=== PATIENT | male | born 1975 | race Caucasian/White ===

== ENCOUNTER 2022-05-11 08:47 | Inpatient (IN) | payer SELFPAY ==
[2022-05-11] VITALS (22 sets, daily range): BP systolic 169–217; BP diastolic 112–173; PULSE 90–113; RESP 14–18; TEMP 36.6–37.1; O2SAT 94–99; BMI 35.9; BMI 34.9
--- NOTE | 2022-05-11 08:52 | NURSING ---
NO OLD EKGS
--- NOTE | 2022-05-11 08:55 | NURSING ---
STROKE ALERT CALLED [phone]
--- NOTE | 2022-05-11 08:56 | CT_ITS ---
STUDY: CTA HEAD AND NECK WITH CONTRAST REASON FOR EXAM: Male, 46 years old. Neuro deficit, acute, stroke suspected RADIATION DOSAGE (If Supplied By Facility): CTDIvol = ( 31.21 ) mGy, DLP = ( 849.16 ) mGycm TECHNIQUE: CT angiography was performed with a multi-detector CT scanner. Data acquisition was obtained from the skull base through the vertex following intravenous administration of IV 100mL [id number]-[id number]. MIP images were reconstructed from the axial data set. Post-processing of the angiographic images was performed, with multiplanar reformation and 3D reconstruction. Individualized dose optimization techniques were used for this CT. COMPARISON: No relevant priors. FINDINGS: Normal bilateral petrous carotid arteries. Normal right cavernous carotid artery with a normal supraclinoid bifurcation. Normal left cavernous carotid artery with a normal supraclinoid bifurcation. Normal right A1 segments of the anterior cerebral artery. Normal left A1 segments of the anterior cerebral artery. Normal intact anterior communicating artery (ACOM). Normal bilateral A2 segments of the anterior cerebral arteries. Normal right M1 and M2 segments of the middle cerebral arteries, with a normal M1 bifurcation. Normal left M1 and M2 segments of the middle cerebral arteries, with a normal M1 bifurcation. Normal right posterior communicating artery (PCOM). Normal left posterior communicating artery (PCOM). Normal bilateral vertebral arteries. Normal basilar artery with a normal basilar bifurcation. The visualized bilateral superior cerebellar (SCA) arteries are normal. Normal bilateral P1, P2 and visualized P3 segments of the posterior cerebral arteries. There is no demonstrated aneurysm of the saxman of Hu. There is no demonstrated abnormality of the visualized brain. AORTIC ARCH: Normal visualized aortic arch. Normal origins of the brachiocephalic, left common carotid, and left subclavian arteries. RIGHT CAROTID ARTERIES: Normal right common carotid artery (CCA). Normal right common carotid bulb. Normal origin of the right internal carotid (ICA) artery without a hemodynamically significant stenosis. Normal visualized cervical portion of the right internal carotid artery. Normal origin of the right external carotid artery (ECA). LEFT CAROTID ARTERIES: Normal left common carotid artery (CCA). Normal left common carotid bulb. Normal origin of the left internal carotid (ICA) artery without a hemodynamically significant stenosis. Normal visualized cervical portion of the left internal carotid artery. Normal origin of the left external carotid artery (ECA). VERTEBRAL ARTERIES: There is enhancement within the bilateral vertebral arteries with a small right vertebral artery, and a dominant left vertebral artery. CT/STROKE CTA Head AND Neck W/Con IMPRESSION: Normal CTA Head and neck with contrast. N.B. : The above Results were Read Back by Everton Trejo MD to Mary Yao and understanding confirmed on 05/11/2022 09:31:12 (ET). Electronically Signed: Everton Trejo MD at 9:32 EDT ,
--- NOTE | 2022-05-11 08:56 | CT_ITS ---
STUDY: CT HEAD STROKE PROTOCOL W/O CONTRAST INJECTION REASON FOR EXAM: Male, 46 years old. Neuro deficit, acute, stroke suspected RADIATION DOSAGE (If Supplied By Facility): CTDIvol = ( 44.99 ) mGy, DLP = ( 812.98 ) mGycm TECHNIQUE: Transaxial CT imaging of the brain was performed without administration of intravenous contrast material. Individualized dose optimization techniques were used for this CT. COMPARISON: No relevant priors. FINDINGS: Normal soft tissue structures. Normal calvarium. Normal size ventricles and extra-axial spaces for the patient''s age. Normal white matter tracts of the cerebral hemispheres. There is a 1.2 cm lacunar infarct in the left thalamus. Normal brainstem. Normal cerebellum. There is no intracranial hemorrhage. There are no findings of an acute ischemic infarction. Mucosal polyps or retention cysts at the base of both maxillary sinuses worse on the right side. ASPECT score: 9 CT/STROKE Brain/Head without Cont IMPRESSION: Findings suggestive of a 1.2 cm lacunar infarct in the left thalamus. N.B. : The above Results were Read Back by Everton Trejo MD to Mary Yao and understanding confirmed on 05/11/2022 09:08:49 (ET). Electronically Signed: Everton Trejo MD at 9:11 EDT ,
--- NOTE | 2022-05-11 08:56 | EKG12_ITS ---
Test Reason : STROKE Blood Pressure : / mmHG Vent. Rate : 111 BPM Atrial Rate : 111 BPM P-R Int : 180 ms QRS Dur : 092 ms QT Int : 348 ms P-R-T Axes : 000 166 124 degrees QTc Int : 473 ms Suspect arm lead reversal, interpretation assumes no reversal Sinus tachycardia Lateral infarct , age undetermined Recommend Repeat ECG Abnormal ECG Confirmed by WILLIAM JEAN, BRITTANY ([id number]), mapping editor ZAINAB STAHL ([id number]) on 05/12/2022 10:45:05 AM Referred By: JACQUE Confirmed By:BRITTANY THOMAS MD
[2022-05-11 09:09] LABS: Absolute Lymphocyte Count 2.14 X10^3/uL (0.83-4.51); Absolute Neutrophil Count 8.8 X10^3/uL (2.0-7.7); Basophil# 0.07 X10^3/uL; Basophil% 0.6 % (0-1); Eosinophil# 0.07 X10^3/uL; Eosinophils% 0.6 % (0-5); Hematocrit 52.2 % (40-54); Hemoglobin 17.9 g/dL (13.0-16.5); Lymphocyte # 2.14 X10^3/ul (0.83-4.51); Lymphocyte % 18.1 % (19-41); Mean Corp Hgb Conc 34.3 g/dL (32-36); Mean Corpuscular Hgb 31.9 pg (27.0-32.0); Mean Platelet Vol. 10.6 fl (6.2-12.0); Monocyte# 0.72 X10^3/uL; Monocyte% 6.1 % (0-10); NRBC Flagged by Analyzer 0 % (0-5); Neutrophil # 8.76 X10^3/uL (2.7-7.7); Neutrophil % 74.1 % (47-70); Platelet Count 363 K/mm3 (150-450); RBC Distribution Width CV 12.8 % (11.6-14.6); Red Blood Count 5.61 M/mm3 (4.6-6.2); White Blood Count 11.8 K/mm3 (4.4-11.0)
--- NOTE | 2022-05-11 09:09 | ED.RN ---
Dr. Vignesh Vizcarra from [facility] on telestroke
--- NOTE | 2022-05-11 09:17 | NURSING ---
FACESHEET FAXED TO [facility]
--- NOTE | 2022-05-11 09:20 | RAD_ITS ---
STUDY: X-RAY CHEST REASON FOR EXAM: Male, 46 years old. Neuro deficit, acute, stroke suspected TECHNIQUE: Single AP portable view of the chest. COMPARISON: None. FINDINGS: EKG electrodes are seen. The lungs are clear and expanded. There is no demonstrated pleural abnormality. Normal size heart. Normal mediastinum and antonella. Normal visualized pulmonary arteries. Normal visualized aortic arch and descending thoracic aorta. Normal visualized thoracic spine. Normal visualized ribs, clavicles, and shoulders. There is no demonstrated abnormality of the visualized soft tissue structures of the upper abdomen. RAD/Chest 1 View IMPRESSION: Normal x-ray examination of the chest. Electronically Signed: Everton Trejo MD at 9:35 EDT ,
[2022-05-11] MEDS: Labetalol (Prefilled) 20 MG/4 ML IV ×5 (09:23→20:42)
[2022-05-11 09:25] LABS: Bedside Glucose 177 mg/dL (74-106)
[2022-05-11 09:28] LABS: Anion Gap 4 (5-15); BUN 9 mg/dL (7-18); BUN/Creat Ratio 7.6 RATIO (10-20); Calcium,Total 9.2 mg/dL (8.5-10.1); Chloride 101 mmol/L (98-107); Creatinine, Serum 1.18 mg/dL (0.70-1.30); EST Glomerular Filtration Rate 71 mL/min (>60); Est Glom Filt Rate - Afr Amer 86 mL/min (>60); Estimated Creatinine Clearance 85.08 ml/min; Glucose 186 mg/dL (74-106); Sodium Level 132 mmol/L (136-145); Troponin-I HS 22 pg/mL (3.0-78.0)
[2022-05-11 09:41] LABS: Prothrombin Time (Protime)PT. 12.8 SECONDS (11.7-14.9)
[2022-05-11 09:42] LABS: Partial Thromboplast Time 28.1 Seconds (24.1-36.2)
--- NOTE | 2022-05-11 10:07 | ED.VIS.STROK ---
HPI History of Present Illness Chief Complaint: Neuro S/Sx Detail of Chief Complaint: Paresthesias to right side of body Informant: patient Narrative Narrative: Patient presents the emergency department via EMS with complaint of paresthesias to the right side of his body. Patient states that he had a headache that started last evening around 8:30 PM and then subsequently developed paresthesias to the right side of his face and right arm and right leg. Patient states that he then went to bed and woke up around 1 AM and the paresthesias seem to be better. Patient then woke up this morning and again noted the headache on the right side of his head and persistent paresthesias to the right side of his face and right arm. Patient states that headache is minimal currently. He had some blurred vision in his right eye last night. Patient has history of hypertension but does not take any medication for this. Patient is never had symptoms like this before. Prior similar symptoms: No PFSH PFS Medical History (Updated 05/11/22 @ 10:[address] Mary Yao, ) HTN (hypertension) Home Medications NK 05/11/22 [History Last Taken Unknown] Allergy/AdvReac Type Severity Reaction Status Date / Time No Known Allergies Allergy Verified 05/11/22 08:48 Social History Smoking Status: Current every day smoker tobacco type: cigarettes ROS ROS ED Review of Systems ROS Unobtainable: other Constitutional Constitutional ED: Reports lethargy; Denies chills, fever(s), sweats or weight loss Eyes Eyes: Reports blurry vision; Denies change in vision or diplopia ENT ENT ED: Denies rhinorrhea or sore throat Cardiovascular Cardiovascular: Denies chest pain, orthopnea or racing heartbeat Respiratory/Chest Respiratory/Chest: Denies cough, dyspnea, dyspnea on exertion, orthopnea or sputum Gastrointestinal Gastrointestinal: Denies abdominal pain, diarrhea, nausea or vomiting Genitourinary Genitourinary ED: Denies dysuria, hematuria or urinary frequency Musculoskeletal Musculoskeletal: Denies arthralgias, back pain, myalgias or neck pain Integumentary Denies abscess, Abrasions or rash Neurologic Neurologic: Reports headache(s) and paresthesias; Denies weakness Psychiatric Psychiatric: Denies anxiety, depression or suicidal thoughts Endocrine Endocrinology: Denies polydipsia, polyphagia or polyuria Hematologic/Lymphatic Hematologic/Lymphatic: Denies easy bleeding, easy bruising or lymphadenopathy Allergic/Immunologic Allergic/Immunologic ED: Denies mouth swelling, tongue swelling or urticaria EXAM Physical Exam Const Vital Signs: 05/11/22 08:48 05/11/22 09:00 05/11/22 09:06 Temperature 98.4 F Temperature Source Oral Pulse Rate 110 H 113 H Respiratory Rate 16 16 Blood Pressure 217/150 H 216/118 H Blood Pressure Mean 172 150 Pulse Ox 99 99 98 Oxygen Delivery Method Room Air Room Air Room Air 05/11/22 09:26 05/11/22 09:48 05/11/22 09:30 Temperature Temperature Source Pulse Rate 100 92 94 Respiratory Rate 16 14 16 Blood Pressure 200/153 H 190/136 H 200/173 H Blood Pressure Mean 168 154 182 Pulse Ox 97 97 94 Oxygen Delivery Method Room Air Room Air Room Air 05/11/22 10:00 Temperature Temperature Source Pulse Rate 93 Respiratory Rate 15 Blood Pressure 181/123 H Blood Pressure Mean 142 Pulse Ox 95 Oxygen Delivery Method Room Air Positive well nourished and well developed General Appearance ED: well developed and NAD HEENT Reports TM's clear and moist mucous membranes normocephalic and atraumatic; Negative for trauma or tenderness Tympanic Membrane ED: Yes TM's clear Eyes PERRL and EOMs intact bilaterally General Eye ED: Negative for pale conjunctiva or scleral icterus Neck no lymphadenopathy, supple and no JVD General: Negative for tenderness Chest Wall inspection of chest normal and palpation of chest normal Chest: Negative for tenderness Resp normal respiratory effort and clear to auscultation bilaterally Effort and Inspection: Negative for respiratory distress or pain with movement Auscultation: Negative for rhonchi, wheezes or diminished lung sounds Cardio regular rate, regular rhythm, S1 normal heart sound, S2 normal heart sound and no murmurs Peripheral Pulses: pulses 2+ throughout GI normal to inspection, nondistended, normoactive bowel sounds, soft to palpation, non-tender, non-distended and no masses Back/Spine no CVA tenderness and no thoracic nor lumbar tenderness Extremity normal to inspection General Extremety ED: Negative for edema General Extremity: Negative for edema Neuro oriented x3, CN's II-XII intact bilaterally and gait normal Neuro Narrative: Patient's NIH stroke scale was a 1 given paresthesias. No focal weakness noted. Sensorium / Orientation: awake, alert, oriented to person, oriented to place and oriented to time Motor Exam: strength 5/5 throughout and strength abnormal Psych mental status grossly normal Skin no rashes or lesions noted and no wounds MDM MDM MDM Narrative Medical decision making narrative: Stroke team called on patient arrival. CT scan of the brain was read by radiologist as lacunar infarct of the left thalamus. Stroke neurologist saw patient and recommended admission for ongoing stroke work-up. Patient also was hypertensive on arrival and received labetalol IV. CTA head and neck were unremarkable. Lab work-up was unremarkable. Case will be discussed with hospitalist evaluate patient for admission Lab Data Attestation: I reviewed the patient's lab results. Labs: Laboratory Results - last 24 hr 05/11/22 05/11/22 05/11/22 08:51 08:51 08:51 WBC 11.8 H RBC 5.61 Hgb 17.9 H Hct 52.2 MCV 93.0 MCH 31.9 MCHC 34.3 RDW Std Deviation 44.0 H RDW Coeff of Michaelle 12.8 Plt Count 363 MPV 10.6 Immature Gran % (Auto) 0.500 Neut % (Auto) 74.1 H Lymph % (Auto) 18.1 L [place] % (Auto) 6.1 Eos % (Auto) 0.6 Baso % (Auto) 0.6 Absolute Neuts (auto) 8.8 H Absolute Lymphs (auto) 2.14 Nucleated RBC % 0 PT 12.8 INR 1.0 APTT 28.1 Sodium 132 L Potassium 4.0 Chloride 101 Carbon Dioxide 27.0 Anion Gap 4 L BUN 9 Creatinine 1.18 Estim Creat Clear Calc 85.08 Est GFR (MDRD) Af Amer 86 Est GFR (MDRD) Non-Af 71 BUN/Creatinine Ratio 7.6 L Glucose 186 H Calcium 9.2 Troponin I High Sens 22 POC Glucose 05/11/22 09:05 WBC RBC Hgb Hct MCV MCH MCHC RDW Std Deviation RDW Coeff of Michaelle Plt Count MPV Immature Gran % (Auto) Neut % (Auto) Lymph % (Auto) [place] % (Auto) Eos % (Auto) Baso % (Auto) Absolute Neuts (auto) Absolute Lymphs (auto) Nucleated RBC % PT INR APTT Sodium Potassium Chloride Carbon Dioxide Anion Gap BUN Creatinine Estim Creat Clear Calc Est GFR (MDRD) Af Amer Est GFR (MDRD) Non-Af BUN/Creatinine Ratio Glucose Calcium Troponin I High Sens POC Glucose 177 H Radiography Diagnostic Testing: Clinical Impression(s) from Imaging Studies Brain CT 05/11/22 08:56 IMPRESSION: Findings suggestive of a 1.2 cm lacunar infarct in the left thalamus. N.B. : The above Results were Read Back by Everton Trejo MD to Mary Yao and understanding confirmed on 05/11/2022 09:08:49 (ET). Electronically Signed: Everton Trejo MD at 9:11 EDT , ADDENDUM: 05/11/22 0918 IMPRESSION: Findings suggestive of a 1.2 cm lacunar infarct in the left thalamus. N.B. : The above Results were Read Back by Everton Trejo MD to Mary Yao and understanding confirmed on 05/11/2022 09:08:49 (ET). Electronically Signed: Everton Trejo MD at 9:11 EDT , Head/Neck CTA 05/11/22 08:56 IMPRESSION: Normal CTA Head and neck with contrast. N.B. : The above Results were Read Back by Everton Trejo MD to Mary Yao and understanding confirmed on 05/11/2022 09:31:12 (ET). Electronically Signed: Everton Trejo MD at 9:32 EDT , ADDENDUM: 05/11/22 0939 IMPRESSION: Normal CTA Head and neck with contrast. N.B. : The above Results were Read Back by Everton Trejo MD to Mayr Yao and understanding confirmed on 05/11/2022 09:31:12 (ET). Electronically Signed: Everton Trejo MD at 9:32 EDT , Chest X-Ray 05/11/22 09:20 IMPRESSION: Normal x-ray examination of the chest. Electronically Signed: Everton Trejo MD at 9:35 EDT , 1 view chest x-ray obtained interpreted by myself no acute disease process. Radiology in agreement. EKG Initial EKG: Attestation: I personally reviewed and interpreted this EKG as follows: Comments: Sinus rhythm with a rate of 111 bpm with no acute ST segment changes noted Discharge Plan Dx/Rx/DC Orders Clinical Impression: Acute CVA (cerebrovascular accident), Arm paresthesia, right, Hypertensive emergency Disposition Disposition: Acute Care [facility]
--- NOTE | 2022-05-11 10:39 | NURSING ---
[facility], HYPERTENS[facility], PAREASTHESIAS
--- NOTE | 2022-05-11 11:30 | HP.PCM.HOS_ITS ---
[facility] - General General Date of Admission: 05/11/22 Date of Service: 05/11/22 Chief Complaint: Right facial numbness, right sided weakness?1 day HPI Narrative DIAMOND FRANCISCO, is a 46 M who presents with the above. Patient has past medical history of hypertension, not on medications, chronic smoker who presented with right facial numbness, and right-sided weakness which was noticed around 8:30 PM the day before. Patient stated that he is right-handed and he could not press digits on his phone to unlock his phone with his left hand. This persisted throughout the evening. He had associated difficulty in walking, he had to drag the right side of his leg and could not move the right side of his upper extremity. He took a tablet of Advil because he had no aspirin and slept. He woke up around 1:30 AM and felt slightly improved. His symptoms came back again around 6:30 AM. His brother called and he told his brother what happened. His brother encouraged him to call the EMS. In emergency room, his blood pressure was 217/150, CBC was 11.8, Hb 17.9, platelet 363, INR 1.0, sodium is 132, potassium 4.2, chloride 101, carbon 27, BUN 9, creatinine 1.18, TSH is 1.28. Patient's initial CT of the head showed a 1.2 cm lacunar infarct in the left thalamus. CTA of the head and neck was unremarkable. Chest x-ray was unremarkable [facility] [place] Medical History HTN (hypertension) Home Medications NK 05/11/22 [History Last Taken Unknown] Allergy/AdvReac Type Severity Reaction Status Date / Time No Known Allergies Allergy Verified 05/11/22 08:48 Family History (Updated 05/11/22 @ 16:[address] Muriel Mcpherson MD) Father CAD (coronary artery disease) Heart disease Myocardial infarction Mother Hypertension no surgical history Social History (Updated 05/11/22 @ 16:[address] Muriel Mcpherson MD) household members: none Smoking Status: Current every day smoker tobacco type: cigarettes alcohol intake: current details: Drinks 6 to 12 cans of beer a day, no history of alcohol withdrawal substance use type: does not use ROS ROS Narrative Constitutional:Denies: Anorexia, Chills, Fever, Night Sweats, Weight Change Eyes: Denies: Blurred vision, Cataracts, Conjunctivae Inflammation, Pain, Redness, Vision Change HEENT: Denies: Difficulty Hearing, Difficulty Swallowing, Head Aches, Hearing Changes, Sinus Congestion, Sinus Drainage Cardiovascular: Denies: Chest Pain, Orthopnea, Palpitations Respiratory: Denies: Cough, Shortness of breath at rest, Sputum production Gastrointestinal: Denies: Abdominal Pain, Nausea, Vomiting Genitourinary: Denies: Dysuria Musculoskeletal: Denies: Joint Pain, Joint stiffness, Joint swelling, Joint Tenderness Skin: Denies: Rash, Wounds Neurological: See HPI Vital Signs Vital Signs Vital Signs: 05/11/22 08:48 05/11/22 09:00 05/11/22 09:06 Temperature 98.4 F Temperature Source Oral Pulse Rate 110 H 113 H Respiratory Rate 16 16 Blood Pressure 217/150 H 216/118 H Blood Pressure Mean 172 150 Pulse Ox 99 99 98 Oxygen Delivery Method Room Air Room Air Room Air 05/11/22 09:26 05/11/22 09:48 05/11/22 09:30 Temperature Temperature Source Pulse Rate 100 92 94 Respiratory Rate 16 14 16 Blood Pressure 200/153 H 190/136 H 200/173 H Blood Pressure Mean 168 154 182 Pulse Ox 97 97 94 Oxygen Delivery Method Room Air Room Air Room Air 05/11/22 10:00 05/11/22 10:00 05/11/22 10:30 Temperature Temperature Source Pulse Rate 93 91 91 Respiratory Rate 15 16 16 Blood Pressure 181/123 H 183/123 H 185/130 H Blood Pressure Mean 142 143 148 Pulse Ox 95 97 95 Oxygen Delivery Method Room Air Room Air Room Air 05/11/22 10:50 Temperature 98.1 F Temperature Source Temporal Pulse Rate 90 Respiratory Rate 16 Blood Pressure 169/112 H Blood Pressure Mean 131 Pulse Ox 97 Oxygen Delivery Method Room Air Weight Weight: 117 kg Body Mass Index (BMI) 35.9 Physical Exam Narrative Physical exam: General: Alert, Oriented x3, Cooperative, obese HEENT: Atraumatic Oral: Moist Mucosa Neck: Supple Lungs: Clear to auscultation Cardiovascular: HS I+II, regular, no murmurs Abdomen: Bowel Sounds Present, Soft, Non Tender Extremities: No edema Skin: No rashes, No breakdown Neurological: No facial palsy, slight numbness to the right side of the brain, power in all 4 extremities 5/5, normal tone, no numbness Psych/Mental Status: Appropriate Results Lab / Micro Data Result Diagrams: 05/11/22 08:51 05/11/22 08:51 Labs: Laboratory Results - last 24 hr 05/11/22 08:51: WBC 11.8 H, RBC 5.61, Hgb 17.9 H, Hct 52.2, MCV 93.0, MCH 31.9, MCHC 34.3, RDW Std Deviation 44.0 H, RDW Coeff of Michaelle 12.8, Plt Count 363, MPV 10.6, Immature Gran % (Auto) 0.500, Neut % (Auto) 74.1 H, Lymph % (Auto) 18.1 L, [place] % (Auto) 6.1, Eos % (Auto) 0.6, Baso % (Auto) 0.6, Absolute Neuts (auto) 8.8 H, Absolute Lymphs (auto) 2.14, Nucleated RBC % 0 05/11/22 08:51: PT 12.8, INR 1.0, APTT 28.1 05/11/22 08:51: Sodium 132 L, Potassium 4.0, Chloride 101, Carbon Dioxide 27.0, Anion Gap 4 L, BUN 9, Creatinine 1.18, Estim Creat Clear Calc 85.08, Est GFR (MDRD) Af Amer 86, Est GFR (MDRD) Non-Af 71, BUN/Creatinine Ratio 7.6 L, Glucose 186 H, Calcium 9.2, Troponin I High Sens 22 05/11/22 09:05: POC Glucose 177 H Radiology Impression Brain CT 05/11/22 08:56 IMPRESSION: Findings suggestive of a 1.2 cm lacunar infarct in the left thalamus. N.B. : The above Results were Read Back by Everton Trejo MD to Mary Yao and understanding confirmed on 05/11/2022 09:08:49 (ET). Electronically Signed: Everton Trejo MD at 9:11 EDT , ADDENDUM: 05/11/2218 IMPRESSION: Findings suggestive of a 1.2 cm lacunar infarct in the left thalamus. N.B. : The above Results were Read Back by Everton Trejo MD to Mary Yao and understanding confirmed on 05/11/2022 09:08:49 (ET). Electronically Signed: Everton Trejo MD at 9:11 EDT , Head/Neck CTA 05/11/22 08:56 IMPRESSION: Normal CTA Head and neck with contrast. N.B. : The above Results were Read Back by Everton Trejo MD to Mary Yao and understanding confirmed on 05/11/2022 09:31:12 (ET). Electronically Signed: Everton Trejo MD at 9:32 EDT , ADDENDUM: 05/11/22 0939 IMPRESSION: Normal CTA Head and neck with contrast. N.B. : The above Results were Read Back by Everton Trejo MD to Mary Yao and understanding confirmed on 05/11/2022 09:31:12 (ET). Electronically Signed: Everton Trejo MD at 9:32 EDT , Chest X-Ray 05/11/22 09:20 IMPRESSION: Normal x-ray examination of the chest. Electronically Signed: Everton Trejo MD at 9:35 EDT , Assessment & Plan Assessment/Plan (1) Acute CVA (cerebrovascular accident): PLAN: Plan 1. Acute onset of right-sided weakness, suggestive of acute TIA vs CVA Symptoms started 8:30 PM the day before admission Symptoms appear to have resolved by now except for right-sided facial numbness CT of the head showed left lacunar infarct CTA of the head and neck was unremarkable Admit to PCU, stroke work-up, MRI of the brain, 2D echo, lipid profile, HbA1c PT/OT to evaluate and treat 2. Hypertensive emergency, patient presented with a blood pressure of 217/150 Will follow acute stroke guidelines and allow for permissive hypertension Labetalol/hydralazine as needed 3. Nicotine dependence, advised to quit, continue on replacement 4. Leukocytosis, likely reactive 5. 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 DVT prophylaxis?heparin subcu Charges/Coding Visit Charges Inpatient E&M: 89705 Init Hosp L3
--- NOTE | 2022-05-11 11:58 | ECHOCS_ITS ---
Reason For Study: TIA/CVA Procedure This was a 2D Doppler, Color Flow transthoracic echocardiogram. The study was technically difficult. Contrast injection was performed. Exam performed portable in patient room. Left Ventricle Normal LV size. The estimated ejection fraction is 55 %. Diastolic function is indeterminate. No regional wall motion abnormalities noted. Right Ventricle Normal RV size. Normal systolic function. Atria Normal left atrium. Normal right atrium. Bubble contrast study negative for right to left interatrial shunt. No doppler evidence for ASD. Mitral Valve There is no mitral valve stenosis. Mild (1+) eccentric mitral valve insufficiency. Tricuspid Valve There is no tricuspid stenosis. Unable to estimate RV systolic pressure due to inadequate jet, pulmonary artery pressure probably normal. Aortic Valve Trisinus/trileaflet aortic valve. There is no aortic stenosis. No aortic valve insufficiency. Pulmonic Valve There is no pulmonic valvular stenosis. No pulmonic valve insufficiency. Great Vessels Normal aortic root. Pericardium/Pleural No pericardial effusion. Medication Diluted definity 1.5ml given slow IV push to enhance endocardial definition. Performed a rapid injection of agitated mix of 9 cc saline and 1cc air to assess for atrial septal defect. MMode/2D Measurements & Calculations LVIDd: 5.9 cm IVSd: 1.7 cm LA dimension: 4.6 cm LVIDs: 4.7 cm LVPWd: 1.3 cm FS: 19.4 % LAV(MOD-bp): 60.3 ml LA A4 area: 19.6 cm2 RA A4 area: 16.7 cm2 LAV(MOD-bp) Indexed: 26.0 ml/m2 LAV(MOD-sp2): 55.2 ml LAV(MOD-sp4): 59.1 ml Time Measurements MV dec time: 0.20 sec Doppler Measurements & Calculations MV E max manish: 77.1 cm/sec Lat Peak E' Manish: 4.5 cm/sec Med Peak E' Manish: 6.7 cm/sec MV A max manish: 89.1 cm/sec E/E' lat: 17.1 E/E' med: 11.5 MV E/A: 0.87 MV V2 max: 91.2 cm/sec MV P1/2t max manish: 89.9 cm/sec Ao V2 max: 98.8 cm/sec MV max P.3 mmHg MV P1/2t: 73.7 msec Ao max P.9 mmHg MV V2 mean: 63.3 cm/sec MV dec slope: 357.1 cm/sec2 Ao V2 mean: 71.7 cm/sec MV mean P.8 mmHg Ao mean P.3 mmHg MV V2 VTI: 18.5 cm MVA(P1/2t): 3.0 cm2 Ao V2 VTI: 18.5 cm LV V1 max: 93.1 cm/sec PA V2 max: 58.0 cm/sec LV V1 max P.5 mmHg LV V1 mean P.8 mmHg LV V1 mean: 62.2 cm/sec LV V1 VTI: 16.6 cm ECHO/Echo Complete W/ Contrast Interpretation Summary The estimated ejection fraction is 55 %. Diastolic function is indeterminate. Mild (1+) eccentric mitral valve insufficiency. Ordering Physician: Muriel Mcpherson Referring Physician: Zenaida PCP Performed By: Jann Mendoza RCS
--- NOTE | 2022-05-11 11:58 | MRI_ITS ---
HISTORY: CVA. TECHNIQUE: Multiplanar and multisequence MR images of the brain were obtained without contrast. 288 images. COMPARISON: CT same day. FINDINGS: BRAIN PARENCHYMA: Minimal chronic white matter changes in the bilateral cerebral white matter. Old lacunar infarct in the right cerebellum. No abnormal focus of restricted diffusion. No acute intracranial hemorrhage identified. CSF SPACES: Cerebral ventricles, cortical sulci, and other extra-axial CSF spaces within normal limits in size. No significant midline shift or other mass effect.No extra-axial fluid collection. VASCULAR SYSTEM: Major intracranial flow voids are maintained. PARANASAL SINUSES AND MASTOID AIR CELLS: Maxillary sinusitis changes as. Trace fluid in the right mastoid air cells. ORBITS: Symmetric contents. MRI/Brain without Contrast IMPRESSION: No evidence for acute infarct. Minimal chronic white matter changes. Electronically Signed: Tasha Varma MD at 15:42 EDT ,
[2022-05-11 12:06] LABS: Thyroid Stim Hormone (TSH) 1.28 uIU/mL (0.358-3.74)
[2022-05-11] MEDS: Famotidine 20 MG Tablet PO ×2 (13:05→20:23)
[2022-05-11] MEDS: 0.9% Saline Lock 10 ML Syringe IV ×2 (13:48→20:27)
--- NOTE | 2022-05-11 16:13 | TELEMED_ITS ---
[facility] Tele[facility] has confirmed receipt of a request for visit. This document confirms receipt of the order initiating the consult. To find the results of the consultation, please view the patient's reports for the scanned Telemed Consult.
[2022-05-11] MEDS: hydrALAZINE 20 MG/ML Vial 5 MG IV (17:06)
[2022-05-11] MEDS: Atorvastatin Calcium 80 MG Tablet PO (20:23)
[2022-05-11] MEDS: Heparin Injection (Vial) 5,000 UNIT/ML VIAL 5000 UNIT SC (20:24)
[2022-05-12] VITALS (14 sets, daily range): BP systolic 156–199; BP diastolic 106–140; PULSE 85–100; RESP 16–18; TEMP 36.6–37.1; O2SAT 95–98
[2022-05-12 05:35] LABS: Absolute Lymphocyte Count 3.56 X10^3/uL (0.83-4.51); Absolute Neutrophil Count 7.4 X10^3/uL (2.0-7.7); Basophil# 0.11 X10^3/uL; Basophil% 0.9 % (0-1); Eosinophils% 1.6 % (0-5); Hematocrit 50.6 % (40-54); Hemoglobin 17.1 g/dL (13.0-16.5); Lymphocyte # 3.56 X10^3/ul (0.83-4.51); Lymphocyte % 28.6 % (19-41); Mean Corp Hgb Conc 33.8 g/dL (32-36); Mean Corpuscular Hgb 31.8 pg (27.0-32.0); Mean Corpuscular Volume 94.2 fL (80-94); Mean Platelet Vol. 10.1 fl (6.2-12.0); Monocyte# 1.19 X10^3/uL; Monocyte% 9.6 % (0-10); NRBC Flagged by Analyzer 0 % (0-5); Neutrophil # 7.36 X10^3/uL (2.7-7.7); Neutrophil % 59.1 % (47-70); Platelet Count 303 K/mm3 (150-450); RBC Distribution Width CV 13.2 % (11.6-14.6); RBC Distribution Width SD 45.6 fl (35.1-43.9); Red Blood Count 5.37 M/mm3 (4.6-6.2); White Blood Count 12.4 K/mm3 (4.4-11.0)
[2022-05-12 05:57] LABS: ALB/GLOB Ratio 1.1 RATIO (0.9-2.4); AST(SGOT) 31 U/L (15-37); Alanine Aminotransfer ALT/SGPT 50 U/L (16-61); Albumin, Serum 3.7 g/dL (3.2-5.0); Alkaline Phosphatase 74 U/L (45-117); Anion Gap 6 (5-15); BUN 11 mg/dL (7-18); BUN/Creat Ratio 9.7 RATIO (10-20); Calcium,Total 8.8 mg/dL (8.5-10.1); Chloride 104 mmol/L (98-107); Cholesterol 162 mg/dL (200); Creatinine, Serum 1.13 mg/dL (0.70-1.30); EST Glomerular Filtration Rate 75 mL/min (>60); Est Glom Filt Rate - Afr Amer 90 mL/min (>60); Estimated Creatinine Clearance 88.85 ml/min; Globulin 3.3 g/dL (2.2-4.2); Glucose 104 mg/dL (74-106); High Density Lipoprotein 40 mg/dL; Potassium 4.1 mmol/L (3.5-5.1); Sodium Level 135 mmol/L (136-145); Triglycerides 137 mg/dL; Very Low Density Lipoprotein 27 mg/dL (5-40)
[2022-05-12] MEDS: 0.9% Saline Lock 10 ML Syringe IV ×2 (06:23→08:34)
[2022-05-12] MEDS: Labetalol (Prefilled) 20 MG/4 ML IV ×3 (06:23→08:34)
[2022-05-12] MEDS: hydrALAZINE 20 MG/ML Vial 5 MG IV (08:29)
[2022-05-12 08:32] LABS: Hemoglobin A1c 5.6 % (3.8-5.6)
[2022-05-12] MEDS: Losartan Potassium 50 MG Tablet PO ×2 (08:45→11:57)
[2022-05-12] MEDS: Aspirin 81 MG TAB.CHEW PO (08:45)
[2022-05-12] MEDS: Famotidine 20 MG Tablet PO (11:15)
[2022-05-12] MEDS: Clopidogrel Bisulfate 300 MG Tablet PO (11:15)
[2022-05-12] MEDS: Heparin Injection (Vial) 5,000 UNIT/ML VIAL 5000 UNIT SC (11:15)
--- NOTE | 2022-05-12 14:02 | CASEMGMT ---
Assessment- SW completed assessment with patient. SW also confirmed address and phone number for patients and his contacts Living situation- Patient lives alone PCP: No PCP Specialists: None Pharmacy: None DME:? None ADL's/IADL's: Patient is independent in all activities of daily living. Past SNF/rehab: None Past HH: None LW: No POA:? No SW went in with nurse to see patient. Patient was sleeping but did wake up. RN was taking patient's blood pressure while SW asked questions. Patient's blood pressure was high. SW did briefly talk with patient about being self pay. Patient did welcome resources. SW gave patient information on [facility], [facility], [employer], list of prescription assistance programs, and a Medicaid application. Patient said he has to go to the bathroom so he got up and went to the bathroom. SW will check back with patient when he is feeling better to talk a little more about d/c planning and complete a PHQ9 since he had a Stroke. Plan: Patient will go home at discharge. [facility] may utilize prescription assistance program since patient does not have any insurance. Fina Rowley ADVANCED MANUFACTURING ASSOCIATE KENISHA
[2022-05-12] MEDS: amLODIPine 10 MG Tablet PO (14:58)
--- NOTE | 2022-05-12 15:15 | NURSING ---
In to medicate pt per orders w/ Norvasc and pt states you can give it to me and recheck me but I'm leaving today. Expresses concern about medical bills d/t lack of insurance and dissatisfaction about lack of rest during hospitalization contributing to high BPs. MD, battery charger, SW made aware of all concerns. Many resources presented to pt. Staff is attempting to make appts for neuro and PCP via [facility]. Pt open to filling out medicaid application. Pt agreeable to stay until 1800. Heart monitor taken off per pt request and IV taken out d/t risk of elopement at this time.
--- NOTE | 2022-05-12 15:15 | CASEMGMT ---
Patient is very stressed about staying at [facility] as he does not have insurance. Physician did send patient's prescriptions to [facility] pharmacy. SW completed prescription assistance program form and sent it to [facility] Pharmacy. SW also called Pharmacist and let them know this information. Fina DE
--- NOTE | 2022-05-12 15:16 | DCINST_ITS ---
Discharge Instructions Diet Discharge Diet: Low fat / Low cholesterol and 2000 mg Sodium Diet Activity Discharge Activity: Return to Normal Activity Follow Up Care Test Results: Test results from this visit will be discussed in further detail at your follow- up appointment, if applicable. Discharge Plan Admission Admit Date/Time: 05/11/22 10:31 Primary Reason for Your Visit: Acute CVA Attending Provider: Muriel Mcpherson Primary Care Provider: Care Physician,No Primary Instructions Additional Instructions / Restrictions: Please take all medications as prescribed. Continue on a low salt, low fat diet Follow-up with a primary care doctor within a week to make sure your blood pressures are okay. You need to also follow-up with a neurologist within 2 to 4 weeks Discharge Orders/Prescriptions Prescriptions: New atorvastatin 80 mg Tablet 80 mg PO QHS 30 Days Qty: 30 0RF nicotine (polacrilex) 2 mg Gum 2 mg PO Q2H PRN PRN (Reason: Nicotine Craving) 14 Days Qty: 120 0RF clopidogrel 75 mg Tablet 75 mg PO DAILY 30 Days Qty: 30 0RF amlodipine 10 mg Tablet 10 mg PO DAILY 30 Days Qty: 30 0RF nicotine 21 mg/24 hr Patch 24 Hour 21 mg transdermal DAILY 30 Days Qty: 30 0RF aspirin 81 mg Tablet,Chewable 81 mg PO BREAKFAST 30 Days Qty: 30 0RF losartan 100 mg Tablet 100 mg PO DAILY 30 Days Qty: 30 0RF Referrals / Follow Up: Milton Aguilar MD [Non-Staff -Ordering Privileges] - Within 2 Weeks Care Physician,No Primary [Primary Care Provider] - Within 1 Week Disposition Disposition (needs filled in before D/C Order can be placed): Home, Self Care
--- NOTE | 2022-05-12 15:24 | DS.PCM_ITS ---
Providers Date of Admission: 05/11/22 Date of Discharge: 05/12/22 Primary Care Physician: No Primary Care Phys Reason For Visit: ACUTE STROKE Diagnosis Discharge Diagnosis (1) Acute CVA (cerebrovascular accident): Status: Acute Code(s): I63.9 - Cerebral infarction, unspecified Plan 1. Acute CVA, small 2. Hypertensive emergency 3. Nicotine dependence 4. 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 Medications at Discharge Home Medications amlodipine 10 mg tablet 10 mg PO DAILY 30 days #30 tabs 05/12/22 aspirin 81 mg chewable tablet 81 mg PO BREAKFAST 30 days #30 tabs 05/12/22 atorvastatin 80 mg tablet 80 mg PO QHS 30 days #30 tabs 05/12/22 clopidogrel 75 mg tablet 75 mg PO DAILY 30 days #30 tabs 05/12/22 losartan 100 mg tablet 100 mg PO DAILY 30 days #30 tabs 05/12/22 nicotine (polacrilex) 2 mg gum 2 mg PO Q2H PRN PRN Nicotine Craving 14 days #120 ea 05/12/22 nicotine 21 mg/24 hr daily transdermal patch 21 mg transdermal DAILY 30 days #30 ea 05/12/22 Hospital Course Operations None Procedures None Summary of Care Provided Minutes Spent on Discharge: 35 Hospital Course: 46-year-old, chronic smoker, with past medical history of hypertension, not been on medication since 2016 who comes in with right facial numbness and right-sided weakness that started at 8:30 PM the night before. Patient stated that he is right-handed and he could not press digits on his phone to unlock his phone with his left hand.? This persisted throughout the evening.? He had associated difficulty in walking, he had to drag the right side of his leg and could not move the right side of his upper extremity.? He took a tablet of Advil because he had no aspirin and slept.? He woke up around 1:30 AM and felt slightly improved.? His symptoms came back again around 6:30 AM.? His brother called and he told his brother what happened.? His brother encouraged him to call the EMS. In the ED, his initial CT of the head showed a 1.2 cm lacunar infarct in the left thalamus. CTA of the head and neck was unremarkable. Patient's blood pressure was 217/150. He was admitted to the progressive care unit and monitored on a stroke protocol. He was allowed to have permissive hypertension per protocol. He had MRI of the brain that was unremarkable. 2D echo showed EF of 55%, no other abnormality. Patient's lipid profile showed triglycerides of 137, cholesterol 162, LDL 95, HDL 40, VLDL 27. HbA1c was 5.6 Patient was managed on aspirin, Plavix, statin. Teleneurology was consulted and felt this was either TIA or early stroke. Patient still had persistent numbness of the face. It was felt that this was a small early stroke. Patient continued to have elevated blood pressure readings. He was started on losartan and then amlodipine was added. He was found out later that patient did not have insurance. Assistance with medications were given in consultation with sr. social media & mobile manager and the pharmacy. Patient was given educational resources for follow-up care. He however was very restless even though he was offered nicotine patches and lozenges. He did not wait for his blood pressure to be fully under control before he was discharged. He stated that he was very concerned about staying longer since he had no insurance. He was given reassurances. Social work gave him resources for Medicaid application. It was strongly recommended that he takes all his medications and follow-up with primary care physician within a week. Physical Exam Narrative Physical exam: General: Alert, Oriented x3, Cooperative, obese HEENT: Atraumatic Oral: Moist Mucosa Neck: Supple Lungs: Clear to auscultation Cardiovascular: HS I+II, regular, no murmurs Abdomen: Bowel Sounds Present, Soft, Non Tender Extremities: No edema Skin: No rashes, No breakdown Neurological: No facial palsy, slight numbness to the right side of the brain, power in all 4 extremities 5/5, normal tone, no numbness Psych/Mental Status: Appropriate Weight / BMI Weight Weight: 113.8 kg Body Mass Index (BMI) 34.9 ABG / Lab / Microbiology Data Result Diagrams: 05/12/22 05:00 05/12/22 05:00 Laboratory: Laboratory Results - last 24 hr 05/12/22 05:00: WBC 12.4 H, RBC 5.37, Hgb 17.1 H, Hct 50.6, MCV 94.2 H, MCH 31.8, MCHC 33.8, RDW Std Deviation 45.6 H, RDW Coeff of Michaelle 13.2, Plt Count 303, MPV 10.1, Immature Gran % (Auto) 0.200, Neut % (Auto) 59.1, Lymph % (Auto) 28.6, [place] % (Auto) 9.6, Eos % (Auto) 1.6, Baso % (Auto) 0.9, Absolute Neuts (auto) 7.4, Absolute Lymphs (auto) 3.56, Nucleated RBC % 0 05/12/22 05:00: Sodium 135 L, Potassium 4.1, Chloride 104, Carbon Dioxide 25.0, Anion Gap 6, BUN 11, Creatinine 1.13, Estim Creat Clear Calc 88.85, Est GFR (MDRD) Af Amer 90, Est GFR (MDRD) Non-Af 75, BUN/Creatinine Ratio 9.7 L, Glucose 104, Calcium 8.8, Total Bilirubin 0.70, AST 31, ALT 50, Alkaline Phosphatase 74, Total Protein 7.0, Albumin 3.7, Globulin 3.3, Albumin/Globulin Ratio 1.1, Triglycerides 137, Cholesterol 162, LDL Cholesterol 95, VLDL Cholesterol 27, HDL Cholesterol 40 05/12/22 05:00: Hemoglobin A1c 5.6 Radiography Diagnostic Testing: Radiology Impression Brain MRI 05/11/22 11:58 IMPRESSION: No evidence for acute infarct. Minimal chronic white matter changes. Electronically Signed: Tasha Varma MD at 15:42 EDT Reading Location ID and State: [facility] / [place] Tel , Service support , Echocardiogram 05/11/22 11:58 Interpretation Summary The estimated ejection fraction is 55 %. Diastolic function is indeterminate. Mild (1+) eccentric mitral valve insufficiency. Ordering Physician: Muriel Mcpherson Referring Physician: Zenaida PCP Performed By: Jann Mendoza RCS D/C Instructions Discharge Diet: Low fat / Low cholesterol and 2000 mg Sodium Diet Meaningful Use Info Meaningful Use Diagnoses (Choose all that apply): Ischemic CVA CVA Therapy Assessed for PT,OT and/or ST?: Yes Ischemic Stroke Antithrombotic order at d/c?: Yes Dx of Atrial fib/flutter?: No Anticoagulant at discharge?: No Reason anticoagulant not ordered: Treatment not Indicated Statins at discharge?: Yes Primary Dx Acute Ischemic CVA?: Yes IV tPA ordered during stay?: No Reason IV t-PA not ordered: Treatment not Indicated Discharge Plan Admission Admit Date/Time: 05/11/22 10:31 Primary Reason for Your Visit: Acute CVA Attending Provider: Muriel Mcpherson Primary Care Provider: Care Physician,No Primary Instructions Additional Instructions / Restrictions: Please take all medications as prescribed. Continue on a low salt, low fat diet Follow-up with a primary care doctor within a week to make sure your blood pressures are okay. You need to also follow-up with a neurologist within 2 to 4 weeks Discharge Orders/Prescriptions Prescriptions: New atorvastatin 80 mg Tablet 80 mg PO QHS 30 Days Qty: 30 0RF nicotine (polacrilex) 2 mg Gum 2 mg PO Q2H PRN PRN (Reason: Nicotine Craving) 14 Days Qty: 120 0RF clopidogrel 75 mg Tablet 75 mg PO DAILY 30 Days Qty: 30 0RF amlodipine 10 mg Tablet 10 mg PO DAILY 30 Days Qty: 30 0RF nicotine 21 mg/24 hr Patch 24 Hour 21 mg transdermal DAILY 30 Days Qty: 30 0RF aspirin 81 mg Tablet,Chewable 81 mg PO BREAKFAST 30 Days Qty: 30 0RF losartan 100 mg Tablet 100 mg PO DAILY 30 Days Qty: 30 0RF Referrals / Follow Up: Milton Aguliar MD [Non-Staff -Ordering Privileges] - Within 2 Weeks (Will call with a cancellation ) Care Physician,No Primary [Primary Care Provider] - Within 1 Week (8:30 to see pt advocate 9:30 to see physician ) Disposition Disposition (needs filled in before D/C Order can be placed): Home, Self Care Charges/Coding Visit Charges Inpatient E&M: 39024 Disch Hosp
--- NOTE | 2022-05-12 15:36 | CASEMGMT ---
Patient is understandably stressed as he does not have insurance so he wants to leave. SW went back into patient's room and spoke with him about the Medicaid application. SW went over with patient the parts he would need to complete. PERCY told patient SW can send the application in if he completes it while he is here. Patient is going to do the application and SW will check back in a few minutes to get application. Fina Rowley FOOD SERVICE MANAGER KENISHA
--- NOTE | 2022-05-12 15:56 | CASEMGMT ---
Patient decided to take Medicaid application home and turn it in himself as he has to put information about child support and he doesn't have information with him. Fina Rowley RAILWAY STATION MANAGERDannie DE
== END 2022-05-12 16:55 | disposition home or self-care (01) | DRG 65 ==
LOC: ED 10:12 → PCU 11:18
PROVIDERS: Admitting Provider Internal Medicine; Emergency Provider Emergency Medicine; Visit Provider Internal Medicine
DX: I63.9 Cerebral infarction, unspecified (principal); I16.1 Hypertensive emergency; E83.118 Other hemochromatosis; F17.210 Nicotine dependence, cigarettes, uncomplicated; I10 Essential (primary) hypertension; Z59.7 Insufficient social insurance and welfare support
CPT/HCPCS: 36415; 70450; 70496; 70498; 70551; 71045; 80048; 80053; 80061; 82962; 83036; 84443; 84484; 85025; 85610; 85730; 93005; 93306; 94762; 97161; 97165; 99285; 99406; Q9957; Q9967; A4216; C8929